=== PATIENT | female | born 1975 ===

== ENCOUNTER 2018-05-26 07:34 | Outpatient (CLI) | payer SELFPAY, OTHER | END 2018-05-26 07:35 | disposition home or self-care (01) | LOC: C.MAMMO 07:34 | DX: Z12.31 Encounter for screening mammogram for malignant neoplasm of breast (principal) ==

== ENCOUNTER 2018-07-29 08:30 | Outpatient (CLI) | payer SELFPAY | END 2018-07-29 08:31 | disposition home or self-care (01) | LOC: C.MAMMO 08:31 ==